=== PATIENT | female | born 1985 ===

== ENCOUNTER 2018-07-02 08:00 | Outpatient (CLI) | payer MEDICAID | END 2018-07-02 08:01 | LOC: LAB.R 08:00 | PROVIDERS: ATTEND Obstetrics & Gynecology | DX: Z11.3 Encounter for screening for infections with a predominantly sexual mode of transmission (principal) | CPT/HCPCS: 87491; 87591 ==

== ENCOUNTER 2018-09-02 13:26 | Outpatient (CLI) | payer MEDICAID ==
--- NOTE | 2018-09-02 17:49 | XRAY Report ---
Reason: LOWER BACK PAIN Procedure Date: 09/02/2018 Accession Number: [id number] / [id number] Procedure: XRN - Lumbar Spine 2 View CPT Code: FULL RESULT: EXAM: LUMBOSACRAL SPINE RADIOGRAPHY. EXAM DATE: 09/02/2018 03:49 PM. CLINICAL HISTORY: Low back pain. COMPARISONS: None. TECHNIQUE: 3 views. FINDINGS: Alignment: Normal. No spondylolisthesis or scoliosis. Bones: Five [id number] lumbar vertebral bodies are present. No fractures or bone lesions. Disks: No degenerative changes. Facets: No degenerative changes. Sacroiliac Joints: Unremarkable. Soft Tissues: Slightly prominent stool is seen in the colon. Paravertebral soft tissue structures are otherwise unremarkable. IMPRESSION: 1. Normal lumbar spine. 2. Slightly prominent stool could represent constipation. RADIA
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
== END 2018-09-02 13:27 | disposition home or self-care (01) ==
LOC: DI.N 13:26
PROVIDERS: ATTEND Physician Assistant Medical
DX: M16.11 Unilateral primary osteoarthritis, right hip (principal); M25.552 Pain in left hip; M54.5 Low back pain; G89.29 Other chronic pain; Z91.49 Other personal history of psychological trauma, not elsewhere classified; Z91.81 History of falling
CPT/HCPCS: 72100; 73521

== ENCOUNTER 2018-10-15 17:09 | Outpatient (CLI) | payer MEDICAID ==
[2018-10-15 18:52] LABS: BILIRUBIN,URINE NEGATIVE (NEGATIVE); GLUCOSE, URINE (UA) NEGATIVE (NEGATIVE); KETONES,URINE (UA) NEGATIVE (NEGATIVE); LEUKOCYTE ESTERASE, URINE TRACE (NEGATIVE); NITRITE,URINE NEGATIVE (NEGATIVE); OCCULT BLOOD,URINE NEGATIVE (NEGATIVE); PH,URINE 5.5 PH (5.0-7.5); PROTEIN,URINE NEGATIVE (NEGATIVE); UROBILINOGEN,URINE 1 (NORMAL) E.U./dL (NORMAL)
[2018-10-15 19:27] LABS: BACTERIA,URINE Many /HPF (None Seen); CLARITY,URINE CLOUDY (CLEAR); RBC,URINE 0-5 /HPF (0-5); SQUAMOUS EPITHELIAL CELL,UR MANY Squamous (<= Few)
== END 2018-10-15 23:59 | disposition home or self-care (01) ==
LOC: LAB.R 17:09
PROVIDERS: ATTEND Physician Assistant Medical
DX: R30.0 Dysuria (principal)
CPT/HCPCS: 81001; 87086